=== PATIENT | male | born 1970 | race Caucasian/White ===

== ENCOUNTER 2017-07-19 16:12 | Emergency (ER) | payer OTHER ==
[2017-07-19 16:17] VITALS: BP 131/88; BMI 24.9
--- NOTE | 2017-07-19 17:38 | DR.GENAD ---
HPI - PCP Primary Care Physician: DORIS - HPI Comment HPI Comment: DENIES OTHER INJURY. PROBLE BEARING WEIGHT. 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 PERSISTENT PAIN SINCE. Chief Complaint:: FELL AT WORK YESTERDAY HURT RIGHT ANKLE AND HIP - Nurses notes reviewed Nurses Notes Review: Yes - Source History Provided: Patient - Mode of Arrival Mode of Arrival: Ambulatory - Timing Onset of Chief Complaint: 07/18/17 Came on: Suddenly - Duration Duration: Constant Duration: Days - Severity Severity: Moderate PMH - PMH Past Medical History: Yes Past Medical History: Coronary Artery Disease, Hypertension, MA Past Surgical History: Yes Surgical History: Angioplasty/Stents - Family History History of Family Medical Conditions: Yes Family Medical History: MA, Hypertension - Social History Does patient currently use any type of tobacco product: Yes Have you used tobacco products in the last 12 months: Yes Type of Tobacco Use: Cigarettes How many years tobacco product used: 33 Does any household member use tobacco: No Alcohol Use: None Do you use any recreational Drugs:: No Lives With: Family Lives Where: Home - infectious screening In the last 2 months have you had wt loss of >10#?: NO Have you had fever, night sweats or hemotysis?: No Have you traveled outside the country in the last 6 months?: No Isolation: Standard PE - Vital Signs Vitals: Temperature 98.5 F Pulse Rate 68 Respiratory Rate 20 Blood Pressure 131/88 O2 Sat by Pulse Oximetry 97 - Diagnosis Discharge Problem: Right ankle sprain Qualifiers: Encounter type: initial encounter Involved ligament of ankle: unspecified ligament Qualified Code(s): S93.401A - Sprain of unspecified ligament of right ankle, initial encounter Sprain of right hip Qualifiers: Encounter type: initial encounter Qualified Code(s): S73.101A - Unspecified sprain of right hip, initial encounter - Discharge Plan Disposition: HOME, SELF-CARE Condition: Stable Prescriptions: Cyclobenzaprine HCl [FLEXERIL 10 MG *] 10 mg PO TID PRN #20 tab PRN Reason: Ibuprofen [MOTRIN TAB 800 MG *] 800 mg PO Q8H PRN #20 tab PRN Reason: Pain/Inflammation Tramadol HCl 50 mg PO Q8H PRN #15 tablet PRN Reason: - Follow ups/Referrals Follow ups/Referrals: BJ GEORGE [Primary Care Provider] - 1 day - Instructions Instructions: Acute Ankle Sprain With Phase I Rehab-SportsMed, Musculoskeletal Pain Additional Instructions: RETURN TO ED IF WORSE.
--- NOTE | 2017-07-19 21:47 | RAD ---
Right ankle, three views Indication: Ankle pain after fall Comparison: None Findings: No acute cortical disruption or malalignment of the right ankle. The joint spaces are intac t. No significant soft tissue abnormality. There is a calcaneal enthesophyte at the Achilles attachme nt. Impression: No acute fracture or subluxation of the right ankle. Reported By:
--- NOTE | 2017-07-19 22:15 | RAD ---
HISTORY: Pain status post fall. Study: Two views of the right hip. Comparison: None. Findings: Prominent femoral head/neck junctions, fragmentation of the bilateral superior lateral acetabulum, an d bilateral coxa profunda. Suggestion of subchondral cystic changes at the bilateral femoral necks. 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 No acute cortical disruption or dislocation can be identifi ed. No significant soft tissue swelling or injury can be seen. IMPRESSION: 1. No acute osseous abnormality. 2. 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 Reported By:
== END 2017-07-19 19:37 | disposition home or self-care (01) ==
LOC: ER 16:22
DX: S93.401A Sprain of unspecified ligament of right ankle, initial encounter (principal); S73.101A Unspecified sprain of right hip, initial encounter; W19.XXXA Unspecified fall, initial encounter; Y92.69 Other specified industrial and construction area as the place of occurrence of the external cause
CPT/HCPCS: 73501; 73610; 99282; 99283